=== PATIENT | male | born 1950 | race Hispanic/Latino ===

== ENCOUNTER 2024-10-18 11:42 | Emergency (ER) | payer MEDICARE ==
[~2024-10-18] VITALS: Ht 172.7 cm; Wt 79.4 kg
[~2024-10-18 11:42] MED LIST: AMLODIPINE BESYL5 MG PO; DOXAZOSIN MESYLA2 MG PO; Diclofenac PO; ENALAPRIL PO; METFORMIN HCL500 MG PO; PROSVENT PO
[2024-10-18 12:03] VITALS: PULSE 78; RESP 16; TEMP 97.9
[2024-10-18 13:11] LABS: COLOR,URINE YELLOW (YELLOW)
[2024-10-18 13:12] LABS: BILIRUBIN,URINE NEGATIVE (NEGATIVE); CLARITY,URINE TURBID (CLEAR); GLUCOSE, URINE NEGATIVE (NEGATIVE); KETONES,URINE NEGATIVE (NEGATIVE); LEUKOCYTE ESTERASE ,URINE MODERATE (NEGATIVE); NITRITE,URINE NEGATIVE (NEGATIVE); PH,URINE 5.5 (5 - 7); PROTEIN,URINE DIPSTICK >=300 (NEGATIVE); URINE UROBILINOGEN 1 mg/dL (0.2 - 1)
[2024-10-18 13:13] LABS: BACTERIA,URINE FEW /HPF; EPITHELIAL CELLS,URINE FEW /LPF; RBC,URINE >50 /HPF (0-5); WBC,URINE (MAN) >50 /HPF (0-5)
[2024-10-18] MEDS ORDERED: CEFDINIR300 MG PO (13:39)
[2024-10-18 16:05] VITALS: BP 126/58; PULSE 76; RESP 18; TEMP 98.6; O2SAT 98
== END 2024-10-18 14:25 | disposition home or self-care (01) ==
LOC: ER 12:25
DX: R30.0 Dysuria (principal); N39.0 Urinary tract infection, site not specified; I10 Essential (primary) hypertension; E11.9 Type 2 diabetes mellitus without complications; E78.5 Hyperlipidemia, unspecified
CPT/HCPCS: 81001; 87086; 87186; 99283